=== PATIENT | female | born 1980 | race Two or more races ===

== ENCOUNTER 2017-06-29 20:26 | Emergency (ER) | payer MEDICAID ==
[~2017-06-29] VITALS: Ht 144.8 cm; Wt 90.7 kg
[2017-06-29 20:31] VITALS: BP 139/67
== END 2017-06-30 00:12 | disposition left against medical advice (07) ==
LOC: ER 20:26
DX: M54.9 Dorsalgia, unspecified (principal); R07.81 Pleurodynia; Z53.21 Procedure and treatment not carried out due to patient leaving prior to being seen by health care provider
CPT/HCPCS: 71045; 72070